=== PATIENT | male | born 1975 | race Caucasian/White ===

== ENCOUNTER 2016-10-31 12:17 | Emergency (ER) | payer OTHER ==
[2016-10-31 12:20] VITALS: BP 143/84
--- NOTE | 2016-10-31 12:30 | ED UPPER/LOWER EXTREMITY COMPL ---
History of Present Illness General Chief Complaint: Laceration Procedure Stated Complaint: LAC TO LEFT LEG Source: patient Exam Limitations: no limitations Vital Signs & Intake/Output Vital Signs & Intake/Output Vital Signs Date Time Temp Pulse Resp B/P B/P Pulse O2 O2 Flow FiO2 Mean Ox Delivery Rate 10/31 1220 97.2 100 16 143/84 97 Room Air Allergies Coded Allergies: NO KNOWN ALLERGIES (09/05/13) Reconcile Medications Allopurinol 300 MG TABLET 1 TAB PO DAILY GOUT (Reported) Cephalexin (Keflex) 500 MG CAPSULE 1 CAP PO TID ppx Pantoprazole Sodium 40 MG TABLET.DR 1 TAB PO DAILY ACID REFLUX (Reported) Paroxetine HCl 20 MG TABLET 1 TAB PO DAILY DEPRESSION (Reported) Triage Note: PT TO ED S/P SLIP ON STAIRS AND SLID INTO A WOOD SHOE RACK AND CUT HIT LEFT LEG. UNSURE OF LAST TETANUS SHOT. Triage Nurses Notes Reviewed? yes Onset: Abrupt Duration: day(s): (1), constant Timing: recent history Severity: moderate Severity Numbers: 6 Pain/Injury Location: Left: Leg. Method of Injury: laceration No Modifying Factors: none Associated Symptoms: none HPI: 41-year-old male presents to the ER status post sustaining laceration at 3:00 in the morning to his left lower lateral leg when he states he slipped going up his stairs and hitting a shoe rack that was made of wood. He now presents quite mild to moderate aching pain since. His last tetanus is unknown. He denies any other injury he did not fall and hit his head. He has not taken anything for his symptoms no modifying factors or associated symptoms otherwise. He denies any difficulty with weightbearing. (DAYANA HELMS) Past History Travel History Traveled to [place] past 21 day No Medical History Any Pertinent Medical History? none Surgical History Surgical History: none Psychosocial History What is your primary language Spanish Tobacco Use: Never used Family History Hx Contributory? No (DAYANA HELMS) Review of Systems Review of Systems Constitutional: Reports: see HPI. All Other Systems: Reviewed and Negative Comments Review of systems: See HPI, All other systems negative. Constitutional, no chills no fever, no malaise no weight loss HEENT: No visual changes no sore throat no congestion, no ear pain Cardiovascular: No chest pain , no palpitation , no orthopnea Skin: no rashes, no change in skin Respiratory: No dyspnea no cough no sputum no hemoptysis GI: No nausea no vomiting, no diarrhea, no bloating/constipation : No dysuria No hematuria, no frequency, no discharge Muscle skeletal: No joint pain, no joint swelling, no back pain, no neck pain, Neurologic: No numbness no confusion, no headache Psych: No stress no depression,. Heme/endocrine: No bruising no bleeding Immunology: No lymphadenopathy (DAYANA HELMS) Physical Exam Physical Exam General Appearance: well developed/nourished, no apparent distress, alert, awake Comments: Well-developed well-nourished patient in no apparent distress. HEENT: Atraumatic, extraocular motion intact Neck: Supple, FROM Back: FROM Cardiovascular: Regular rate and rhythms no murmurs Respiratory: Chest nontender.There were no bony deformities, no asymmetry. No respiratory distress. Patient speaking in full complete sentences. Breath sounds clear to auscultation bilaterally: NO W/R/R Upper Extremities: full range of motion Hip/Pelvis: Atraumatic/Stable. FROM. No pain with pelvic compression Knee: Atraumatic/stable. FROM. No joint swelling, no effusion. No laxity. Negative jet/anterior drawer test. No pain with ROM Leg: There is a 4 cm superficial linear laceration noted to the lateral left lower leg no active bleeding no ecchymosis no swelling the rest of the leg is atraumatic No edema, 5 out of 5 strength in the lower extremity, normal dorsiflexion of great toe bilaterally, gross sensation is intact, patellar tendon reflex 2+ bilaterally. Ankle/Foot: Atraumatic/stable. Skin intact. FROM. No swelling, no effusion. No laxity on exam Pulses: Normal/equal DP/PT pulses bilaterally. Brisk cap refill Neuro: awake, alert, and oriented to person, place and time. There were no obvious focal neurologic abnormalities. Skin: Warm & dry;No appreciable rash on exposed skin Psych: Mood affect normal, normal memory normal judgment. Diagram Legs Front/Back 1) Laceration as described (DAYANA HELMS) Progress Differential Diagnosis: compartment syndrome, contusion, fracture, sprain, tendon injury Plan of Care: Current Medications Sig/Meghan Start time Last Medication Dose Stop Time Status Admin Lidocaine 20 ML ONCE ONE 10/31 1245 UNVr 10/31 (Lidocaine 1%) 10/31 1246 1246 The wound was thoroughly irrigated with normal saline Betadine peroxide and anesthetized with lidocaine 1% sutures 8 administered by me patient tolerated procedure well discussed with him the possibility of a foreign body not seen on examination or deep tendon injury still exists to return with any concerns or signs of infection tetanus IM ordered. He feels comfortable with plan ambulatory with steady gait upon discharge (DAYANA HELMS) Departure Departure Time of Disposition: 1310 Disposition: HOME OR SELF CARE Condition: Stable Clinical Impression Primary Impression: Leg laceration Referrals: TYRELL WESTBROOK,DAAN Gamboa (PCP/Family) Additional Instructions: Keflex as directed for wound prophylaxis keep area clean and covered bacitracin daily. Return to the emergency room and 7 days for suture removal. The possibility of a foreign body not seen on examination exists,return anytime sooner if you developed redness warmth swelling to the site streaking up her skin fever or chills this was sent to [facility] Departure Forms: Customer Survey General Discharge Information Prescriptions: Current Visit Scripts Cephalexin (Keflex) 1 CAP PO TID #21 CAP (DAYANA HELMS) PA/BEHAVIORAL HEALTH RN Co-Sign Statement Statement: ED Attending supervision documentation- [] I saw and evaluated the patient. I have also reviewed all the pertinent lab results and diagnostic results. I agree with the findings and the plan of care as documented in the PA's/BEHAVIORAL HEALTH RN's documentation. [X] I have reviewed the ED Record and agree with the PA's/BEHAVIORAL HEALTH RN's documentation. [] Additions or exceptions (if any) to the PAs/BEHAVIORAL HEALTH RN's note and plan are summarized below: [] (CHEPE WESTBROOK,PETER Torres) Procedures Laceration/Wound Repair Laceration/Wound Repair: Wound Location: lower extremity Wound's Depth, Shape: linear, superficial Wound Length (cm): 4 Wound Explored: clean, no foreign body removed, irrigated extensively Irrigated w/ Saline (ccs): 200 Betadine Prep? Yes Anesthesia: 1% lidocaine Volume Anesthetic (ccs): 8 Wound Repaired With: sutures, Steri-strips Suture Size/Type: 3:0 Number of Sutures: 8 Layer Closure? No Sterile Dressing Applied: Yes Date of Last Tetanus: 10/31/16 (DAYANA HELMS)
[2016-10-31] MEDS ORDERED: KEFLEX500 M1 PO (13:11)
[2016-10-31] MEDS ORDERED: ALLOPURINOL300 M1 PO (13:18)
[2016-10-31] MEDS ORDERED: PAROXETINE HCL20 M1 PO (13:18)
[2016-10-31] MEDS ORDERED: PANTOPRAZOLE SO40 M1 PO (13:19)
== END 2016-10-31 13:25 ==
LOC: ERH 12:17
DX: S81.812A Laceration without foreign body, left lower leg, initial encounter (principal); W22.03XA Walked into furniture, initial encounter; Y93.01 Activity, walking, marching and hiking; Y92.9 Unspecified place or not applicable
CPT/HCPCS: 90471; 90714

== ENCOUNTER 2016-11-11 13:32 | Emergency (ER) | payer OTHER ==
[~2016-11-11] VITALS: Ht 182.9 cm; Wt 104.3 kg
[~2016-11-11 13:32] MED LIST: ALLOPURINOL300 M1 PO; KEFLEX500 M1 PO; PANTOPRAZOLE SO40 M1 PO; PAROXETINE HCL20 M1 PO
[2016-11-11 13:45] VITALS: BP 155/90
== END 2016-11-11 15:57 | disposition admitted as inpatient to this hospital (09) ==
LOC: ERH 13:32
DX: Z48.02 Encounter for removal of sutures (principal)